=== PATIENT | male | born 1985 | race Caucasian/White ===

== ENCOUNTER 2019-02-03 20:45 | Emergency (ER) | payer OTHER ==
[2019-02-03] MEDS ORDERED: Ketorolac Tromethamine 30 MG/ML VIAL ONE (21:23)
[2019-02-03 21:38] LABS: Bilirubin Small (Negative); Blood, Urine Moderate (Negative); Clarity CLEAR (Clear); Glucose, Urine (Dipstick) Negative (Negative); Leukocyte Negative (Negative); Nitrite Negative (Negative); Protein, Urine (Dipstick) Trace mg/dL (Neg-Trace); Specific Gravity, Urine 1.038 (1.002-1.036); pH, Urine 5.5 (5.0-9.0)
[2019-02-03 21:41] LABS: Pathc Cast-AUWi Flag 2.04 (0-2.49); RBC/HPF 21-50 HPF (0-3); WBC/HPF 0-3 HPF (0-3)
--- NOTE | 2019-02-03 21:46 | CT ---
CT of abdomen and pelvis: 02/03/2019 COMPARISON: None HISTORY: Right flank pain TECHNIQUE: Axial CT imaging at 5 mm intervals from lung bases through pubic symphysis without contras t. Coronal reformatted imaging obtained. FINDINGS: Lack of contrast media limits assessment of the viscera, bowel, vascular structures, and fo r lymphadenopathy. The visualized lung bases are unremarkable. Gastric suture line present. No free intraperitoneal air or fluid. Limited assessment of the liver, gallbladder, spleen, pancreas, and adrenal glands is unremarkable. The left kidney appears unremarkable. No evidence for left-sided obstructive uropathy. Punctate nonobstructing stone noted in upper pole of right kidney. There is mild right-sided hydronep hrosis and hydroureter. There is a punctate calcification either within the posterior aspect of the urinary bladder on the right or within the distal right ureter at the right ureterovesicular junction measuring approximately 2 mm, likely on the basis of a calculus. Limited assessment of the bowel without contrast media demonstrates no inflammatory change. Appendix appears within normal limits. Review of the osseous structures demonstrates lower lumbar spine facet hypertrophy. No worrisome lyti c or blastic bone lesion. IMPRESSION: Mild hydronephrosis and hydroureter on the right secondary to a 2 mm punctate calcificati on either within the urinary bladder or distal most aspect of right ureter..
[2019-02-03 21:53] LABS: Bacteria/HPF Rare-Few HPF (None Seen); Crystals/HPF 3+ CA OXALATE HPF (Negative)
[2019-02-03 22:24] LABS: Anion Gap 14 mmol/L (10-20); BUN (Urea Nitrogen) 15 mg/dL (8.9-20.6); Calc. Creatinine Clearance 0 mL/min (70-130); Calcium 9.3 mg/dL (7.8-10.44); Carbon Dioxide 23 mmol/L (22-29); Chloride 108 mmol/L (98-107); Estimated GFR-MDRD 73; Glucose 125 mg/dL (70-105); Potassium 3.5 mmol/L (3.5-5.1); Sodium 141 mmol/L (136-145)
== END 2019-02-03 23:07 | disposition home or self-care (01) ==
LOC: ERS 20:45
DX: N13.2 Hydronephrosis with renal and ureteral calculous obstruction (principal)
CPT/HCPCS: 36415; 74176; 80048; 81003; 81015; 96374; J1885